=== PATIENT | male | born 1965 | race Caucasian/White ===

== ENCOUNTER 2018-07-25 06:43 | Emergency (ER) | payer OTHER ==
[~2018-07-25] VITALS: Ht 160 cm; Wt 72.6 kg
[2018-07-25] MEDS ORDERED: COZAAR25 MG (06:55)
[2018-07-25] MEDS ORDERED: NORVASC5 MG (06:56)
[2018-07-25] MEDS ORDERED: OSEL75CA PO (12:34)
== END 2018-07-25 13:08 | disposition home or self-care (01) ==
LOC: ER 06:43
DX: J11.1 Influenza due to unidentified influenza virus with other respiratory manifestations (principal)

== ENCOUNTER 2019-02-11 12:09 | Emergency (ER) | payer OTHER ==
[~2019-02-11] VITALS: Ht 160 cm; Wt 72.6 kg
[~2019-02-11 12:09] MED LIST: COZAAR25 MG; NORVASC5 MG; OSEL75CA PO
== END 2019-02-11 14:29 | disposition home or self-care (01) ==
LOC: ER 12:09
DX: J40 Bronchitis, not specified as acute or chronic (principal)

== ENCOUNTER 2019-03-04 10:51 | Emergency (ER) | payer OTHER ==
[~2019-03-04] VITALS: Ht 160 cm; Wt 72.6 kg
== END 2019-03-04 13:40 | disposition home or self-care (01) ==
LOC: ER 10:51
DX: R68.83 Chills (without fever) (principal)

== ENCOUNTER 2019-05-13 11:47 | Emergency (ER) | payer OTHER ==
[~2019-05-13] VITALS: Ht 160 cm; Wt 72.6 kg
[~2019-05-13 11:47] MED LIST changes: -COZAAR25 MG; +COZAAR25 MG PO
== END 2019-05-13 13:53 | disposition home or self-care (01) ==
LOC: ER 11:47
DX: M54.5 Low back pain (principal); R10.13 Epigastric pain

== ENCOUNTER 2021-10-11 09:12 | Emergency (ER) | payer OTHER ==
[~2021-10-11] VITALS: Ht 160 cm; Wt 68.0 kg
[2021-10-11] MEDS ORDERED: LUPRON DEPOT3.75 M1 (09:43)
== END 2021-10-11 16:05 | disposition home or self-care (01) ==
LOC: ER 09:12
DX: I10 Essential (primary) hypertension (principal); R53.81 Other malaise; G44.40 Drug-induced headache, not elsewhere classified, not intractable; T50.995A Adverse effect of other drugs, medicaments and biological substances, initial encounter; Y92.89 Other specified places as the place of occurrence of the external cause

== ENCOUNTER → 2023-02-28 | Emergency (ER) | payer OTHER ==
[~2023-02-28] VITALS: Ht 160 cm; Wt 69.4 kg
[~2023-02-28] MED LIST changes: +LUPRON DEPOT3.75 M1
[2023-02-28 11:22] LABS: HEMATOCRIT 42.2 % (39.0-48.0); HEMOGLOBIN 14.8 g/dL (13-16.00); MEAN CELL VOLUME 84.3 fL (80.0-100.00); MEAN CORPUSCULAR HEMOGLOBIN 29.6 pg (27.00-32.0); MEAN CORPUSCULAR HGB CONC 35.1 g/dl (32.0-36.0); PLATELET COUNT 281 K/uL (150-450); RED BLOOD COUNT 5.01 M/uL (4.00-6.00); RED CELL DISTRIBUTION WIDTH 13.3 % (11.5-14.5)
[2023-02-28 11:53] LABS: URINE APPEARANCE Clear; URINE BILIRRUBIN Negative (NEGATIVE); URINE BLOOD Negative; URINE COLOR Yellow; URINE GLUCOSE Negative (NEGATIVE); URINE LEUKOCYTE Negative; URINE NITRATE Negative; URINE PROTEIN Negative (NEGATIVE); URINE UROBILINOGEN 0.2 E.U./dl
[2023-02-28 11:54] LABS: CALCIUM 9.1 mg/dL (8.5-10.1); CREATININE SERUM 0.89 mg/dL (0.70-1.30); GFR 88.42; POTASSIUM 3.63 mEq/L (3.5-5.1)
[2023-02-28 11:57] LABS: URINE RBC 2.4 uL (0.0-20.8)
[2023-02-28 11:59] LABS: URINE BACTERIA 1.2 uL (0.0-1933); URINE EPITHELIAL CELLS 0.2 uL (0.0-38.8); URINE WBC 0.7 uL (0.0-23.2)
== END | disposition left against medical advice (07) ==
LOC: ER 09:48
PROVIDERS: General Practice
DX: R10.84 Generalized abdominal pain (principal)

== ENCOUNTER 2023-07-10 17:55 | Emergency (ER) | payer OTHER ==
[~2023-07-10] VITALS: Ht 160 cm; Wt 67.6 kg
[2023-07-10 20:47] LABS: HEMATOCRIT 43.4 % (39.0-48.0); HEMOGLOBIN 14.9 g/dL (13-16.00); MEAN CELL VOLUME 85.7 fL (80.0-100.00); MEAN CORPUSCULAR HEMOGLOBIN 29.4 pg (27.00-32.0); MEAN CORPUSCULAR HGB CONC 34.3 g/dl (32.0-36.0); PLATELET COUNT 303 K/uL (150-450); RED BLOOD COUNT 5.06 M/uL (4.00-6.00); RED CELL DISTRIBUTION WIDTH 13.1 % (11.5-14.5)
[2023-07-10 20:53] LABS: URINE APPEARANCE Clear; URINE BILIRRUBIN Negative (NEGATIVE); URINE BLOOD Negative; URINE COLOR Yellow; URINE GLUCOSE Negative (NEGATIVE); URINE LEUKOCYTE Negative; URINE NITRATE Negative; URINE PROTEIN Negative (NEGATIVE); URINE UROBILINOGEN 0.2 E.U./dl
[2023-07-10 20:56] LABS: URINE BACTERIA 7.5 uL (0.0-1933)
[2023-07-10 20:58] LABS: URINE WBC 1.5 uL (0.0-23.2)
[2023-07-10 21:19] LABS: CALCIUM 9.6 mg/dL (8.5-10.1); CREATININE SERUM 0.73 mg/dL (0.70-1.30); GFR 111.14; POTASSIUM 4.22 mEq/L (3.5-5.1)
== END 2023-07-10 23:53 | disposition home or self-care (01) ==
LOC: ER 17:55
PROVIDERS: Emergency Medicine
DX: N21.1 Calculus in urethra (principal); R10.2 Pelvic and perineal pain; I10 Essential (primary) hypertension

== ENCOUNTER 2024-02-15 13:12 | Emergency (ER) | payer OTHER ==
[~2024-02-15] VITALS: Ht 160 cm; Wt 68.0 kg
[2024-02-15] MEDS ORDERED: CEFTRIAXONE SODIUM 1,000 MG VIAL IM ONE (15:45)
[2024-02-15] MEDS ORDERED: KETOROLAC TROMETHAMINE 30 MG VIAL IM ONE (15:45)
[2024-02-15] MEDS ORDERED: AMOX-CLAV 875-1 EACH PO (15:53)
[2024-02-15] MEDS ORDERED: ZYRTEC10 MG PO (15:53)
== END 2024-02-15 17:05 | disposition home or self-care (01) ==
LOC: ER 13:13
DX: H65.92 Unspecified nonsuppurative otitis media, left ear (principal); I10 Essential (primary) hypertension; Z85.46 Personal history of malignant neoplasm of prostate

== ENCOUNTER → 2024-07-12 | Emergency (ER) | payer OTHER ==
[~2024-07-12] VITALS: Ht 160 cm; Wt 68.0 kg
[~2024-07-12] MED LIST changes: +AMOX-CLAV 875-1 EACH PO; +KETOROLAC TROMETHAMINE 60 MG VIAL IM ONE; +ORPHENADRINE CITRATE 30 MG/ML AMPUL IM ONE; +ZYRTEC10 MG PO
== END | disposition home or self-care (01) ==
LOC: ER 08:47
DX: M62.830 Muscle spasm of back (principal); I10 Essential (primary) hypertension

== ENCOUNTER 2024-12-11 13:13 | Emergency (ER) | payer OTHER ==
[~2024-12-11] VITALS: Ht 160 cm; Wt 68.0 kg
[~2024-12-11 13:13] MED LIST changes: -KETOROLAC TROMETHAMINE 60 MG VIAL IM ONE; -ORPHENADRINE CITRATE 30 MG/ML AMPUL IM ONE
[2024-12-11] MEDS ORDERED: KETOROLAC TROMETHAMINE 60 MG VIAL IM ONE ×2 (13:45→14:02)
[2024-12-11] MEDS ORDERED: TRIAMCINOLONE ACETONIDE 40 MG/ML VIAL IM ONE (13:45)
[2024-12-11] MEDS ORDERED: TRIAMCINOLONE ACETONIDE 40 MG/ML VIAL ONE (14:01)
[2024-12-11] MEDS ORDERED: DICLOFENAC SODI75 MG PO (14:52)
== END 2024-12-11 14:54 | disposition home or self-care (01) ==
LOC: ER 13:17
DX: R10.32 Left lower quadrant pain (principal)